=== PATIENT | female | born 1995 | race American Indian/Alaskan Native ===

== ENCOUNTER 2021-03-19 15:41 | Emergency (ER) | payer OTHER ==
[2021-03-19 16:06] VITALS: BP 121/80
--- NOTE | 2021-03-19 17:54 | Event Note ---
ED Screening Note Date of service: 03/19/21 Time: 17:50 ED Screening Note: 25-year-old female presents to the ER today with complaints of diffuse abdominal pain x3 months but states has been getting worse. She recently had a CT of her abdomen pelvis done on March [address] results showed constipation as well as cholelithiasis without any evidence of cholecystitis. She states that her primary care doctor is planning on referring her to a GI specialist. She is also currently being treated for H. pylori and is on Flagyl, clarithromycin, penicillin and pantoprazole. She is on lactulose for constipation but she states that it is not really helping. She also complains of a cough and shortness of breath which she has been having for 2 weeks. She is currently on promethazine cough syrup and Tessalon Perles but she states that the medication is not helping. Patient also has a past medical history significant for type 2 diabetes and hypertension This initial assessment/diagnostic orders/clinical plan/treatment(s) is/are subject to change based on patients health status, clinical progression and re- assessment by fellow clinical providers in the ED. Further treatment and workup at subsequent clinical providers discretion. Patient/guardian urged not to elope from the ED as their condition may be serious if not clinically assessed and managed. Initial orders include: Labs/cxr
[2021-03-19 18:10] LABS: Basophils % (Auto) 0.5 % (0.0-1.8); Eosinophils # (Auto) 0.1 K/mm3 (0.0-0.4); Eosinophils % (Auto) 1.1 % (0.0-4.3); Hematocrit 42.8 % (30.3-42.9); Hemoglobin 14.7 gm/dl (10.1-14.3); Lymphocytes # (Auto) 2.9 K/mm3 (1.2-5.4); Lymphocytes % (Auto) 34.7 % (13.4-35.0); Mean Corpuscular HGB Conc 34 % (30-34); Mean Corpuscular Volume 86 fl (79-97); Monocytes # (Auto) 0.6 K/mm3 (0.0-0.8); Monocytes % (Auto) 6.7 % (0.0-7.3); Platelet Count 212 K/mm3 (140-440); Red Blood Count 4.95 M/mm3 (3.65-5.03)
--- NOTE | 2021-03-19 18:29 | XRay Report ---
CHEST 2 VIEWS INDICATION / CLINICAL INFORMATION: cough/sob. COMPARISON: None available. FINDINGS: SUPPORT DEVICES: None. HEART / MEDIASTINUM: No significant abnormality. LUNGS / PLEURA: No significant pulmonary or pleural abnormality. No pneumothorax. ADDITIONAL FINDINGS: No significant additional findings. IMPRESSION: 1. No acute findings. Signer Name: Rick Huang MD Signed: 03/19/2021 6:25 PM Workstation Name: [id number]
[2021-03-19 18:33] LABS: Alanine Aminotransferase 21 units/L (7-56); Albumin 4.6 g/dL (3.9-5); Blood Urea Nitrogen 9 mg/dL (7-17); Calcium 9.8 mg/dL (8.4-10.2); Hemolysis Index 13
[2021-03-19 18:35] LABS: BUN/Creatinine Ratio 30; Bilirubin,Direct < 0.2 mg/dL (0-0.2)
[2021-03-19 18:56] LABS: Bilirubin,Urine NEG (Negative); Blood,Urine NEG (Negative); Color,Urine Yellow (Yellow); Mucus,Urine FEW /HPF; Urobilinogen,Urine < 2.0 mg/dL (<2.0)
--- NOTE | 2021-03-19 20:25 | Ultrasound Report ---
ULTRASOUND ABDOMEN, LIMITED (RIGHT UPPER QUADRANT) INDICATION: ruq pain. COMPARISON: None available. FINDINGS: Pancreas: Visualized portion shows no significant abnormality. Liver: Normal. Gallbladder: Echogenic material is present in the gallbladder with associated acoustic shadowing Bile ducts: Normal. Common Bile Duct measures 2.0 mm. Free fluid: None. Additional Findings: None. IMPRESSION: 1. Cholelithiasis. Signer Name: Earle Horner MD Signed: 03/19/2021 8:21 PM Workstation Name: [id number]
--- NOTE | 2021-03-19 21:08 | Emergency Department Report ---
ED Abdominal Pain HPI - General Chief Complaint: Abdominal Pain Stated Complaint: SOB, ABD PAIN Time Seen by Provider: 03/19/21 18:32 Source: patient Mode of arrival: Ambulatory Limitations: No Limitations - History of Present Illness Initial Comments: 35-year-old -[place] female diabetic asthma department complaining of a 2 to 3-month history of abdominal pain to the upper quadrant of unknown etiology. She was seen by primary care provider on yesterday and advised to come to emergency department should her pain continue. She has been having some issues with constipation but not responding to the lactulose. CT scan CT scan was performed on yesterday which did confirm gallstones and constipation. MD Complaint: abdominal pain -: Gradual Location: LUQ, RUQ Radiation: LUQ, RUQ Migration to: LUQ, RUQ Severity: mild, moderate Severity scale (0 -10): 10 Quality: cramping, aching, dull Consistency: constant Improves With: nothing Worsens With: nothing Associated Symptoms: denies other symptoms. denies: dysuria, hematemesis, hematuria, anorexia - Related Data Previous Rx's Medication Instructions Recorded Last Taken Type metFORMIN [Glucophage] 500 mg PO BID #30 tablet 11/15/13 Unknown Rx Insulin Glargine,Hum.rec.anlog 20 unit SQ QHS #1 vial 03/28/14 Unknown Rx [Lantus] Insulin Glulisine [Apidra] 4 units SUB-Q AC #1 vial 03/28/14 Unknown Rx Hyoscyamine Subl [Levsin Sl 0.125 0.125 mg SL Q6HR PRN #20 tab 03/19/21 Unknown Rx TAB] Ondansetron [Zofran ODT TAB] 8 mg PO Q12HR #14 tab.rapdis 03/19/21 Unknown Rx Allergies Allergy/AdvReac Type Severity Reaction Status Date / Time No Known Allergies Allergy Unverified 11/14/13 17:36 ED Review of Systems ROS: Stated complaint: SOB, ABD PAIN Other details as noted in HPI Comment: All other systems reviewed and negative ED Past Medical Hx - Past Medical History Previous Medical History?: Yes Hx Congestive Heart Failure: No Hx Diabetes: Yes (Type 1) Hx Psychiatric Treatment: No Hx Asthma: No Hx COPD: No - Social History Smoking Status: Never Smoker - Medications Home Medications: Home Medications Medication Instructions Recorded Confirmed Last Taken Type metFORMIN [Glucophage] 500 mg PO BID #30 tablet 11/15/13 Unknown Rx Insulin Glargine,Hum.rec.anlog 20 unit SQ QHS #1 vial 03/28/14 Unknown Rx [Lantus] Insulin Glulisine [Apidra] 4 units SUB-Q AC #1 vial 03/28/14 Unknown Rx Hyoscyamine Subl [Levsin Sl 0.125 0.125 mg SL Q6HR PRN #20 tab 03/19/21 Unknown Rx TAB] Ondansetron [Zofran ODT TAB] 8 mg PO Q12HR #14 tab.rapdis 03/19/21 Unknown Rx ED Physical Exam - General Limitations: No Limitations General appearance: alert, in no apparent distress - Head Head exam: Present: atraumatic, normocephalic - Eye Eye exam: Present: normal appearance, PERRL, EOMI Pupils: Present: normal accommodation - ENT ENT exam: Present: normal exam, mucous membranes moist - Neck Neck exam: Present: normal inspection, full ROM - Respiratory Respiratory exam: Present: normal lung sounds bilaterally. Absent: respiratory distress - Cardiovascular Cardiovascular Exam: Present: regular rate, normal rhythm. Absent: systolic murmur, diastolic murmur, rubs, gallop - GI/Abdominal GI/Abdominal exam: Present: soft, normal bowel sounds - Extremities Exam Extremities exam: Present: normal inspection - Back Exam Back exam: Present: normal inspection - Neurological Exam Neurological exam: Present: alert, oriented X3 - Psychiatric Psychiatric exam: Present: normal affect, normal mood - Skin Skin exam: Present: warm, dry, intact, normal color. Absent: rash ED Course Vital Signs 03/19/21 16:04 Temperature 98.4 F Pulse Rate 117 H Respiratory 18 Rate Blood Pressure 121/80 [Right] O2 Sat by Pulse 100 Oximetry ED Medical Decision Making - Lab Data Result diagrams: 03/19/21 17:59 03/19/21 17:59 - Radiology Data Radiology results: report reviewed Comments [facility] [address] [place] [address] Ultrasound Report Signed Patient: KENNETH MALLOY MR#: [id number] : 1995 Acct:[id number] Age/Sex: 25 / F ADM Date: 03/19/21 Loc: ED Attending Dr: Ordering Physician: ELIUD CABELLO Date of Service: 03/19/21 Procedure(s): US abdomen limited Accession Number(s): [id number] cc: ELIUD CABELLO ULTRASOUND ABDOMEN, LIMITED (RIGHT UPPER QUADRANT) INDICATION: ruq pain. COMPARISON: None available. FINDINGS: Pancreas: Visualized portion shows no significant abnormality. Liver: Normal. Gallbladder: Echogenic material is present in the gallbladder with associated acoustic shadowing Bile ducts: Normal. Common Bile Duct measures 2.0 mm. Free fluid: None. Additional Findings: None. IMPRESSION: 1. Cholelithiasis. Signer Name: Earle Horner MD Signed: 03/19/2021 8:21 PM Workstation Name: [id number] Transcribed By: JHONNY Dictated By: Earle Horner MD Electronically Authenticated By: Earle Horner MD Signed Date/Time: 03/19/212020 DD/ 19 TD/TT: - Medical Decision Making This patient presents with abdominal pain of unclear etiology. Their evaluation has not identified a emergent etiology for the abdominal pain. Specifically, given the very benign exam, normal laboratory studies, and lack of significant risk factors, I have a very low suspicion for appendicitis, ischemic bowel, bowel perforation, or any other life threatening disease. I have discussed with the patient the level of uncertainty with undifferentiated abdominal pain and clearly explained the need to follow-up as noted on the discharge instructions, or return to the Emergency Department immediately if the pain worsens, develops fever, persistent and uncontrollable vomiting, or for any new symptoms or concerns. I discussed with the patient that this presentation today for abdominal pain could represent a significant risk for an acute abdominal process. Although the tests in the ED were essentially normal, there is still a possibility of a process such as appendicitis, diverticulitis, cholecystitis, ulcer, early bowel obstruction, mesenteric ischemia, kidney stone, or even kidney infection which could subsequently cause disability or . The patient understands that they must return within 24 hours for a recheck or see their physician within 24 hours for re-exam due to the possibility of significant surgical or medical process. Critical care attestation.: If time is entered above; I have spent that time in minutes in the direct care of this critically ill patient, excluding procedure time. ED Disposition Clinical Impression: Cholelithiasis Disposition: DC- TO HOME OR SELFCARE Is pt being admited?: No Does the pt Need Aspirin: No Instructions: Cholelithiasis, Gallbladder Eating Plan, Abdominal Pain (ED) Prescriptions: Hyoscyamine Subl [Levsin Sl 0.125 TAB] 0.125 mg SL Q6HR PRN #20 tab PRN Reason: abdominal cramps and spasms Ondansetron [Zofran ODT TAB] 8 mg PO Q12HR #14 tab.nunodis Referrals: [facility] [Provider Group] - 3-5 Days PRIMARY CARE,MD [Primary Care Provider] - 3-5 Days
== END 2021-03-19 22:30 | disposition home or self-care (01) ==
LOC: ED 15:41
DX: K80.20 Calculus of gallbladder without cholecystitis without obstruction (principal); E10.9 Type 1 diabetes mellitus without complications; Z79.4 Long term (current) use of insulin; Z79.899 Other long term (current) drug therapy
CPT/HCPCS: 36415; 71046; 76705; 80048; 80076; 81001; 83690; 85025

== ENCOUNTER 2021-04-09 10:30 | Day surgery (SDC) | payer OTHER ==
[~2021-04-09 10:30] MED LIST: ceFAZolin/STERILE WATER 2 GM/20 ML SYRINGE IV NR
--- NOTE | 2021-04-09 11:25 | Anesthesia Day of Surgery ---
Anesthesia Day of Surgery - Day of Surgery Patient Examined: Yes Patient H&P Reviewed: Yes Patient is NPO: Yes
--- NOTE | 2021-04-09 11:26 | Anesthesia Consultation ---
Anesthesia Consult and Med Hx Date of service: 04/09/21 - Airway Anesthetic Teeth Evaluation: Chipped (Missing) - Pre-Operative Health Status ASA Pre-Surgery Classification: ASA2 Proposed Anesthetic Plan: General - Pulmonary Hx Smoking: No Hx Asthma: No COPD: No Hx Pneumonia: No Hx Sleep Apnea: No (VALDEMAR PRE SCREEN LOW RISK) - Cardiovascular System Hx Hypertension: Yes (TOOK SELF OFF MEDS X 1 MONTH) - Central Nervous System Hx Psychiatric Problems: Yes (Anxiety/Depression HX SUCIDAL THOUGHTS - RESOLVED) - Gastrointestinal Hx Gastroesophageal Reflux Disease: No - Endocrine Hx End Stage Renal Disease: No Hx Insulin Dependent Diabetes: Yes (Type 1) - Hematic Hx Anemia: Yes Hx Sickle Cell Disease: No - Other Systems Hx Alcohol Use: No Hx Cancer: No Hx Obesity: No
[2021-04-09] MEDS ORDERED: LACTATED RINGERS 1,000 ML IV SCH ×2 (11:30)
[2021-04-09] MEDS ORDERED: LIDOCAINE (1%) 10 MG/1 ML VIAL 20 ML MDV ONE (11:51)
[2021-04-09] MEDS ORDERED: BUPIVACAINE/PF (0.25%) 2.5 MG/ML 30 ML VIAL INFILTRATI ONE ×2 (11:51→12:48)
[2021-04-09] MEDS ORDERED: ACETAMINOPHEN 500 MG TAB PO SCH (12:00)
[2021-04-09] MEDS ORDERED: HYDROmorphone 1 MG/1 ML INJ IV PRN (12:00)
[2021-04-09] MEDS ORDERED: CELECOXIB 200 MG CAP PO NR (12:00)
[2021-04-09] MEDS ORDERED: ONDANSETRON 4 MG/2 ML INJ IV PRN (12:00)
[2021-04-09] MEDS ORDERED: MAGNESIUM OXIDE 400 MG TAB PO SCH (12:00)
[2021-04-09] MEDS ORDERED: MIDAZOLAM 2 MG/2 ML INJ IV NR (12:00)
[2021-04-09] MEDS ORDERED: LIDOCAINE PF 100 MG/5 ML (CARDIAC SYRINGE) IV ONE (12:05)
[2021-04-09] MEDS ORDERED: propofoL 200 MG/20 ML VIAL IV ONE (12:06)
[2021-04-09] MEDS ORDERED: ROCURONIUM 50 MG/5 ML INJ IV ONE (12:06)
[2021-04-09] MEDS ORDERED: fentaNYL 100 MCG/2 ML INJ ONE (12:06)
[2021-04-09] MEDS ORDERED: SODIUM CHLORIDE 0.9% IRR 1,500 ML BOTTLE IR ONE (12:49)
[2021-04-09] MEDS ORDERED: LIDOCAINE (1%) 10 MG/1 ML VIAL 20 ML MDV INFILTRATI ONE (12:49)
[2021-04-09] MEDS ORDERED: PHENYLEPHRINE/NS 1,000 MCG/10 ML SYRINGE (OR USE) IV ONE (12:50)
[2021-04-09] MEDS ORDERED: ONDANSETRON 4 MG/2 ML INJ ONE (12:50)
[2021-04-09] MEDS ORDERED: NEOSTIGMINE 10MG/10 ML INJ MDV ONE (12:50)
[2021-04-09] MEDS ORDERED: GLYCOPYRROLATE 0.4 MG/2 ML INJ ONE (12:51)
[2021-04-09] MEDS ORDERED: ALBUTEROL 8.5 GM MDI INHALATION IH ONE (13:00)
--- NOTE | 2021-04-09 13:30 | Short Stay Summary ---
Short Stay Documentation Date of service: 04/09/21 - History Principal diagnosis: symptomatic cholethiasis H&P: obtained from office - Allergies and Medications Current Medications: Allergies No Known Allergies Allergy (Verified 04/04/21 16:26) Home Medications Medication Instructions Recorded Confirmed Last Taken Type Insulin Glargine,Hum.rec.anlog 25 unit SQ QHS 04/04/21 04/09/21 04/08/21 09:00 H istory [Lantus] Insulin Lispro [Humalog] 10 unit SQ TID 04/04/21 04/09/21 04/08/21 21:00 History Active Medications Acetaminophen (Acetaminophen 500 Mg Tab) 1,000 mg PO ONCE HANNY Stop: 04/09/21 21:00 Last Admin: 04/09/21 11:30 Dose: 1,000 mg Documented by: Cefazolin Sodium (Cefazolin/Sterile Water 2 Gm/20 Ml Syringe) 2 gm IV PREOP NR Stop: 04/09/21 18:00 Celecoxib (Celecoxib 200 Mg Cap) 200 mg PO PREOP NR Stop: 04/09/21 21:00 Last Admin: 04/09/21 11:30 Dose: 200 mg Documented by: Hydromorphone HCl (Hydromorphone 1 Mg/1 Ml Inj) 0.25 mg IV Q10MIN PRN PRN Reason: Pain, Moderate (4-6) Stop: 04/09/21 18:00 Hydromorphone HCl (Hydromorphone 1 Mg/1 Ml Inj) 0.5 mg IV Q10MIN PRN PRN Reason: Pain , Severe (7-10) Stop: 04/09/21 18:00 Lactated Ringer's (Lactated Ringers) 1,000 mls @ 75 mls/hr IV DIRECT HANNY Last Admin: 04/09/21 11:30 Dose: 75 mls/hr Documented by: Magnesium Oxide (Magnesium Oxide 400 Mg Tab) 400 mg PO ONCE HANNY Stop: 04/09/21 21:00 Last Admin: 04/09/21 11:30 Dose: 400 mg Documented by: Midazolam HCl (Midazolam 2 Mg/2 Ml Inj) 2 mg IV PREOP NR Stop: 04/09/21 23:59 Last Admin: 04/09/21 12:11 Dose: 2 mg Documented by: Ondansetron HCl (Ondansetron 4 Mg/2 Ml Inj) 4 mg IV ONCE PRN PRN Reason: Nausea And Vomiting Stop: 04/09/21 18:00 - Brief post op/procedure progress note Date of procedure: 04/09/21 Pre-op diagnosis: symptomatic cholelithiasis Post-op diagnosis: same Procedure: laparoscopic cholecystectomy Anesthesia: GETA, local Surgeon: ALEXA TINSLEY (Melody Aldridge MD) Estimated blood loss: minimal Pathology: list (gallbladder) Specimen disposition: to lab Condition: stable - Hospital course Hospital course: Pt observed in PACU and discharged to home in stable condition - Disposition Condition at discharge: Good Disposition: DC- TO HOME OR SELFCARE Short Stay Discharge Plan Activity: other (no heavy lifting) Diet: regular Wound: open to air, per your surgeon's advice Follow up with: PRIMARY CARE, [Primary Care Provider] - 7 Days ALEXA TINSLEY DO [Staff Physician] - 14 Days Prescriptions: HYDROcodone/APAP 5-325 [Guy 5/325] 1 each PO Q6HR PRN #20 tablet PRN Reason: Pain
[2021-04-09] MEDS ORDERED: INSULIN LISPRO 100 UNIT/ML SUB-Q ONE ×2 (13:44→14:00)
[2021-04-09] MEDS: HYDROmorphone 1 MG/1 ML INJ IV PRN ×2 (13:48→14:00)
[2021-04-09] MEDS ORDERED: HYDROcodone/ACETAMINOPHEN 5-325 MG TAB PO PRN (14:11)
--- NOTE | 2021-04-09 14:29 | Operative Report ---
Operative Report Operative Report: Date of procedure: 04/09/21 Pre-op diagnosis: symptomatic cholelithiasis Post-op diagnosis: same Procedure: laparoscopic cholecystectomy Anesthesia: ABEBEA, local Surgeon: ALEXA TINSLEY (Melody Aldridge MD) Estimated blood loss: minimal Pathology: list (gallbladder) Specimen disposition: to lab Condition: stable Hospital course: Pt observed in PACU and discharged to home in stable condition HPI an indication: The patient is a 25-year-old female who has been having right upper quadrant pain for the past several weeks. The pain is associated with nausea and vomiting. The pain has been so severe in the last 2 weeks that the patient presented to the emergency room of several hospitals [address] scan of the abdomen and pelvis and ultrasound which showed cholelithiasis without evidence of cholecystitis. LFTs were within normal limits. Patient was referred to the surgery clinic by yeast stacker for evaluation for cholecystectomy. Patient symptoms and history were consistent with symptomatic cholelithiasis. It was recommended that the patient undergo cholecystectomy. All risks, benefits, alternatives to surgery were discussed in detail and questions answered. Consent was obtained for laparoscopic, possible open cholecystectomy, possible cholangiogram. Procedure in detail: The patient was identified in the preoperative area and taken back to the operating room, placed on the operating room table in supine position. After anesthesia was induced, the abdomen was prepped and draped in usual sterile fashion and timeout was performed. Local anesthetic was infiltrated into all of the skin incision sites. Using an 11 blade, a supraumbilical incision was made through which a Veress needle was inserted. The position of the veress needle was confirmed with the saline drop test and the abdomen was then insufflated to 15 mmHg without incident. The veress needle was then removed and a 5 mm Optiview trocar placed through this incision. The abdomen was then inspected and there was no underlying injury to any of the abdominal contents. An additional 12 mm subxyphoid port, and 2, 5mm RUQ ports were then placed under direct visualization. The patient was then placed into reverse Trendelberg and tilted to the left. There were adhesions from the right lobe of the liver to the anterior abdominal wall which were taken down using EndoShears and hook electrocautery. The gallbladder was visualized and was mildly distended. The gallbladder fundus was grasped and retracted cephalad and above the liver and the infundibulum was retracted laterally. The cystic duct and artery were then very carefully dissected. The lateral and medial peritoneal attachments of the gallbladder were dissected. The cystic duct and artery were seen as the only 2 structures entering the gallbladder and the critical view was successfully obtained. 3 clips were placed on the proximal aspect of the cystic duct and 1 distally, 2 clips on the proximal aspect of the cystic artery and one distally. The cystic duct and cystic artery were then transected in between the clips using EndoShears. The gallbladder was dissected from the liver bed using hook electrocautery. The gallbladder was placed into a Endo Catch bag and removed from the abdomen via the 12mm port. The gallbladder fossa was then inspected and there was no identifiable bleeding or bile leakage. Hemostasis was ensured. The clips on the cystic duct and artery were visualized and intact. The patient was then placed into neutral position. The 12 mm port fascia was closed with interrupted 0 Vicryl suture using the Jalil Lomeli device. The remaining ports were removed under direct visualization. Skin incisions were closed with 4-0 Monocryl subcuticular stitches and skin glue. All skin incisions were once again infiltrated with local anesthetic. At the end case all sponge, instrument, sharp counts were correct 2. The patient was awoken from anesthesia, extubated, and taken to PACU in stable condition. The patient's father was updated.
[2021-04-09 14:38] VITALS: BP 136/79
--- NOTE | 2021-04-09 18:14 | Post Anesthesia Evaluation ---
- Post Anesthesia Evaluation Patient Participated: Yes Airway Patent: Yes Stable Respiratory Function: Yes Nausea/Vomiting: No Temp > 96.8F: Yes Pain Manageable: Yes Adequeate Hydration: Yes Anesthesia Complications: No Block Receding Appropriately: Not Applicable Patient on Ventilator: No
== END 2021-04-09 14:55 | disposition home or self-care (01) ==
LOC: OR 10:30
PROVIDERS: ATTEND Surgery
DX: K80.10 Calculus of gallbladder with chronic cholecystitis without obstruction (principal); Z20.822 Contact with and (suspected) exposure to COVID-19; E13.9 Other specified diabetes mellitus without complications; I10 Essential (primary) hypertension; F32.9 Major depressive disorder, single episode, unspecified; F41.9 Anxiety disorder, unspecified; D64.9 Anemia, unspecified; Z79.4 Long term (current) use of insulin; Z87.440 Personal history of urinary (tract) infections; Z98.890 Other specified postprocedural states
CPT/HCPCS: 36415; 47562; 82962; 84703; 88304; J0690; J1170; J2001; J2250; J2370; J2405; J2704; J2710; J3010; J7120; U0003; J1815